=== PATIENT | male | born 1990 | race Caucasian/White ===

== ENCOUNTER 2023-11-23 08:12 | Emergency (ER) | payer OTHER ==
[2023-11-23 08:23] VITALS: RESP 20; TEMP 99
[2023-11-23 08:57] LABS: Basophil (Absolute #) 0.09 x10^3/uL (0-0.4); Eosinophil % 3.2 % (0.00-5.0); Hematocrit 46.8 % (42-50); Hemoglobin 15.2 g/dL (12.5-18.0); IMMATURE GRAN # 0.02 x10^3u/L (0.00-0.03); IMMATURE GRAN % 0.2 % (0.00-0.4); Lymphocyte (Absolute #) 1.21 x10^3/uL (1.0-4.6); Lymphocytes % 12.8 % (24.0-44.0); Mean Cell Volume 84.6 fL (78-100); Mean Corpuscular Hemoglobin 27.5 pg (26-32); Mean Corpuscular Hgb Concent. 32.5 g/dL (32-36); Mean Platelet Volume 9.1 fL (7.5-11.0); Monocyte (Absolute #) 0.92 x10^3/uL (0.0-1.3); Monocytes % 9.7 % (0.0-12.0); Neutrophil % 73.1 % (36.0-66.0); Platelet Count 346 x10^3/uL (150-450); Red Blood Count 5.53 x10^6/uL (4.1-5.6); Red Cell Distribution Width 13.1 % (11.5-14.0); White Blood Count 9.4 x10^3/uL (4.0-10.5)
--- NOTE | 2023-11-23 09:27 | XRAY ---
Indication: Left abdomen pain. Diverticulitis. Multiple contiguous axial images obtained through abdomen and pelvis without contrast. Comparison: None Lung bases clear. Heart not enlarged with small right hilar calcified node. Noncontrasted stomach and bowel loops appear nonobstructed with normal appendix. Distal descending colon demonstrates mild diverticulosis with small focus of mild diverticulitis. Tiny reactive free fluid but no walled off fluid collection or free air. Intact sigmoid anastomosis. Incidental 20 cm fatty hepatomegaly, 13.5 cm splenomegaly, 8 mm gallstone and a few tiny splenic calcified granulomas. Remaining liver, gallbladder, pancreas, spleen, adrenal glands, kidneys, ureters, bladder, and aorta are unremarkable for noncontrast exam. Osseous structures intact with minimal degenerative changes visualized thoracic spine. Small fatty right inguinal hernia. Impression: 1. Mild diverticulitis distal descending colon with tiny free fluid. 2. Incidental fatty hepatomegaly, splenomegaly, subcentimeter gallstone, small fatty right inguinal hernia, and old granulomatous disease.
[2023-11-23 09:45] LABS: ALBUMIN 4.5 g/dL (3.5-5.0); ANION GAP 11.7 MEQ/L (5-15); BILIRUBIN,TOTAL 0.6 mg/dL (0.2-1.3); Creatinine 1 0.75 mg/dL (0.66-1.25); EST GLOMERULAR FILTRATION RATE 120.7 ML/MIN; Potassium 3.8 mmol/L (3.5-5.1); Total Protein 8.4 g/dL (6.3-8.2)
[2023-11-23 10:04] VITALS: BP 119/89; PULSE 95; O2SAT 97
[2023-11-23] MEDS ORDERED: Cipro 500 MG ONE (10:04)
[2023-11-23] MEDS ORDERED: NORCO 5/325 MG ONE (10:04)
[2023-11-23] MEDS ORDERED: Flagyl 500 MG ONE (10:04)
[2023-11-23] MEDS: NORCO 5/325 MG PO ONE (10:05)
[2023-11-23] MEDS: Flagyl 500 MG PO ONE (10:05)
[2023-11-23] MEDS: Cipro 500 MG PO STA (10:05)
[2023-11-23 10:13] LABS: Appearance Clear (Clear); Bilirubin Negative (Negative); Blood Negative (Negative); Glucose, Urine Negative (Negative); Ketones Negative (Negative); Leukocyte Esterase Negative (Negative); Nitrite Negative (Negative); Ph 6.5 (4.6-8.0); Protein,Urine Dip Negative (Negative); Specific Gravity 1.015 (1.005-1.030); Urobilinogen 0.2 mg/dL (0.2)
--- NOTE | 2023-11-23 10:17 | ERPHSYRPT ---
- History of Present Illness Time Seen by Provider: 11/23/23 08:15 Historian: patient Exam Limitations: no limitations Patient Subjective Stated Complaint: Pt states "I have had a ruptured diverticulum before and I just want to make sure that is not what is going on. I have had belly pain since march and I have had several rounds of antibiotics and I am out now." Triage Nursing Assessment: Pt presented alert and oriented X 3, skin pwd. pt ambulates with an upright steady gait, able to speak in clear full sentences. Pt playing in his phone on the bed resting comfortably Physician History: 33-year-old male with history of recurrent diverticulitis presented in the ER with complaint of left-sided abdominal pain off and on for the last 1 week. Patient reports dull aching to sharp pain moderate intensity at times with no associated nausea vomiting or diarrhea/hematochezia. Reports having similar symptoms in the past with diverticulitis. Patient has history of diverticulitis abscess/perforation and wants to make sure he does not have any abscess developing this time. No fever or chills reported. Currently having minimal pain. Allergies/Adverse Reactions: No Known Drug Allergies Allergy (Verified 11/23/23 08:23) Hx Tetanus, Diphtheria Vaccination/Date Given: No Hx Influenza Vaccination/Date Given: No Hx Pneumococcal Vaccination/Date Given: No Immunizations Up to Date: No Travel Risk - International Travel Have you traveled outside of the country in past 3 weeks: No - Coronavirus Screening Are you exhibiting any of the following symptoms?: No Close contact with a COVID-19 positive Pt in past 14-21 Days: No - Vaccine Status Have you recieved a Covid-19 vaccination: Yes Material Spreader: Moderna - Vaccination Dates Date of 2cond Vaccination (if applicable): 2020 - Review of Systems Constitutional: No Symptoms Eyes: No Symptoms Ears, Nose, & Throat: No Symptoms Respiratory: No Symptoms Cardiac: No Symptoms Abdominal/Gastrointestinal: Abdominal Pain Genitourinary Symptoms: No Symptoms Musculoskeletal: No Symptoms Neurological: No Symptoms Hematologic/Lymphatic: No Symptoms Immunological/Allergic: No Symptoms - Past Medical History Pertinent Past Medical History: Yes Other Medical History: diverticulitis - Past Surgical History Past Surgical History: Yes Other Surgical History: ruptured diverticulum - Social History Smoking Status: Never smoker Exposure to second hand smoke: No Drug Use: none Patient Lives Alone: No - Nursing Vital Signs Nursing Vital Signs: Initial Vital Signs Blood Pressure 145/99 11/23/23 08:18 O2 Sat by Pulse Oximetry 99 11/23/23 08:18 Pain Scale Pain Intensity 5 - Physical Exam General Appearance: no apparent distress, alert Eye Exam: PERRL/EOMI Ears, Nose, Throat Exam: normal ENT inspection Neck Exam: normal inspection, non-tender, supple, full range of motion Respiratory Exam: normal breath sounds, lungs clear Cardiovascular Exam: regular rate/rhythm, normal heart sounds Gastrointestinal/Abdomen Exam: soft, normal bowel sounds, tenderness (Mild tende rness left flank/left lower quadrant) Back Exam: normal inspection, normal range of motion Extremity Exam: normal inspection, normal range of motion Neurologic Exam: alert, oriented x 3, cooperative, 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 Skin Exam: normal color SpO2 Interpretation: normal SpO2: 97 O2 Delivery: Room Air Ordered Tests: Active Orders 24 hr Category Date Time Status ABDOMEN AND PELVIS W/0 CONTRAS [CT] Stat Exams 11/23/23 08:37 Completed CBC W DIFF Stat Lab 11/23/23 08:45 Completed CMP Stat Lab 11/23/23 08:45 Completed LIPASE Stat Lab 11/23/23 08:45 Completed UA W/RFX UR CULTURE Stat Lab 11/23/23 09:44 Completed Medication Summary Discontinued Medications Generic Name Dose Route Start Last Admin Trade Name Ash PRN Reason Stop Dose Admin Hydrocodone Bitart/Acetaminophen 2 tab 11/23/23 09:54 11/23/23 10:05 Hydrocodone/Apap 5/325 1 Tab Tablet PO 11/23/23 09:55 2 tab STAT ONE Administration Hydrocodone Bitart/Acetaminophen Confirm 11/23/23 10:04 Hydrocodone/Apap 5/325 1 Tab Tablet Administered 11/23/23 10:05 Dose 2 tab .ROUTE .STK-MED ONE Ciprofloxacin 500 mg 11/23/23 10:00 11/23/23 10:05 Ciprofloxacin 500 Mg Tablet PO 11/23/23 10:01 500 mg ONCE STA Administration Ciprofloxacin Confirm 11/23/23 10:04 Ciprofloxacin 500 Mg Tablet Administered 11/23/23 10:05 Dose 500 mg .ROUTE .STK-MED ONE Metronidazole 500 mg 11/23/23 10:00 11/23/23 10:05 Metronidazole 500 Mg Tablet PO 11/23/23 10:01 500 mg STAT ONE Administration Metronidazole Confirm 11/23/23 10:04 Metronidazole 500 Mg Tablet Administered 11/23/23 10:05 Dose 500 mg .ROUTE .STK-MED ONE Lab/Rad Data: Laboratory Result Diagrams 11/23/23 08:45 11/23/23 08:45 Laboratory Results 11/23/23 11/23/23 11/23/23 Range/Units 09:44 08:45 08:45 WBC 9.4 (4.0-10.5) x10^3/uL RBC 5.53 (4.1-5.6) x10^6/uL Hgb 15.2 (12.5-18.0) g/dL Hct 46.8 (42-50) % MCV 84.6 (78-100) fL MCH 27.5 (26-32) pg MCHC 32.5 (32-36) g/dL RDW 13.1 (11.5-14.0) % Plt Count 346 (150-450) x10^3/uL MPV 9.1 (7.5-11.0) fL Gran % 73.1 H (36.0-66.0) % Immature Gran % (Auto) 0.2 (0.00-0.4) % Nucleat RBC Rel Count 0.0 (0.00-0.1) % Eos # (Auto) 0.30 (0-0.5) x10^3/uL Immature Gran # (Auto) 0.02 (0.00-0.03) x10^3u/L Absolute Lymphs (auto) 1.21 (1.0-4.6) x10^3/uL Absolute Monos (auto) 0.92 (0.0-1.3) x10^3/uL Absolute Nucleated RBC 0.00 (0.00-0.01) x10^3u/L Lymphocytes % 12.8 L (24.0-44.0) % Monocytes % 9.7 (0.0-12.0) % Eosinophils % 3.2 (0.00-5.0) % Basophils % 1.0 (0.0-0.4) % Absolute Granulocytes 6.90 (1.4-6.9) x10^3/uL Basophils # 0.09 (0-0.4) x10^3/uL Sodium 137 (137-145) mmol/L Potassium 3.8 (3.5-5.1) mmol/L Chloride 107 (98-107) mmol/L Carbon Dioxide 23 (22-30) mmol/L Anion Gap 11.7 (5-15) MEQ/L BUN 11 (9-20) mg/dL Creatinine 0.75 (0.66-1.25) mg/dL Estimated GFR 120.7 ML/MIN Glucose 112 H (74-106) mg/dL Calcium 9.0 (8.4-10.2) mg/dL Total Bilirubin 0.60 (0.2-1.3) mg/dL AST 30 (17-59) U/L ALT 33 (0-50) U/L Alkaline Phosphatase 70 (38-126) U/L Serum Total Protein 8.4 H (6.3-8.2) g/dL Albumin 4.5 (3.5-5.0) g/dL Lipase 44 (23-300) U/L Urine Color Yellow (Yellow) Urine Appearance Clear (Clear) Urine pH 6.5 (4.6-8.0) Ur Specific Pony 1.015 (1.005-1.030) Urine Protein Negative (Negative) Urine Glucose (UA) Negative (Negative) mg/dL Urine Ketones Negative (Negative) Urine Blood Negative (Negative) Urine Nitrite Negative (Negative) Urine Bilirubin Negative (Negative) Urine Urobilinogen 0.2 (0.2) mg/dL Ur Leukocyte Esterase Negative (Negative) U Hyaline Cast (Auto) NONE SEEN (0-2) /LPF Urine Microscopic RBC 0-2 (0-5) /HPF Urine Microscopic WBC 0-2 (0-5) /HPF Ur Epithelial Cells None Seen (None Seen) /HPF Urine Bacteria None Seen (None Seen) /HPF Urine Culture Reflexed NO (NO) - Progress Progress: improved, re-examined Progress Note: 11/23/23 10:44 33-year-old is evaluated for left sided abdominal pain with history of recurrent diverticulitis. He is afebrile. Has no peritoneal signs except for minimal tenderness. Patient initially did not want any symptomatic relief but later on given Toradol and [place], feeling much better on reevaluation. Workup showed normal white count, fairly unremarkable chemistries. CT abdomen pelvis without contrast showing mild diverticulitis without any sealed off abscess/free air. I believe patient can be managed outpatient with oral antibiotics. I have started him on Cipro and Flagyl, recommended taking NSAIDs for pain relief. Discussed signs symptoms of worsening needing return to ER which she seems understanding. Stable for discharge. Counseled pt/family regarding: lab results, diagnosis, need for follow-up, rad results Medical Desision Making - Diagnostic Testing Diagnostic test were ordered, analyzed, and reviewed by me: Yes Radiological Interpretation: Reviewed by me - Risk of complications The pt has a mod risk of morbidity or mortality based on: Need for prescription drug management - Departure Departure Disposition: Home Clinical Impression: Diverticulitis Condition: Stable Critical Care Time: No Referrals: KILO JOINER, MARYJO [Primary Care Provider] - Follow up with PCP 1 day Instructions: Diverticulitis (DC), Severe Abdominal Pain, Adult (DC) Additional Instructions: Take Tylenol/ibuprofen as needed for pain. Follow-up with primary care for reevaluation and may need referral for GI for further evaluation of recurrent diverticulitis's. Return to ER for intractable abdominal pain/vomiting/fever chills, intractable diarrhea, blood in the stool etc. Prescriptions: Ibuprofen 600 mg PO Q6HPRN PRN 10 Days #20 tablet PRN Reason: Pain Ciprofloxacin [Cipro 500 MG] 500 mg PO BID #20 tablet Metronidazole 500 mg [Flagyl 500 MG] 500 mg PO TID 10 Days #30 tablet
[2023-11-23 10:18] LABS: Bacteria None Seen /HPF (None Seen); Epithelial Cells None Seen /HPF (None Seen); Hyaline Casts NONE SEEN /LPF (0-2); RBC 0-2 /HPF (0-5); WBC 0-2 /HPF (0-5)
[2023-11-23 10:19] LABS: ADD URINE CULTURE? NO (NO)
== END 2023-11-23 10:22 | disposition home or self-care (01) ==
LOC: ED 08:12
DX: K57.92 Diverticulitis of intestine, part unspecified, without perforation or abscess without bleeding (principal); R10.9 Unspecified abdominal pain; Z79.899 Other long term (current) drug therapy
CPT/HCPCS: 36415; 74176; 80053; 81001; 83690; 85025; 99284; A9270-GY